=== PATIENT | female | born 1960 | race Caucasian/White ===

== ENCOUNTER 2018-05-27 17:45 | Emergency (ER) | payer OTHER ==
[~2018-05-27] VITALS: Ht 154.9 cm; Wt 77.0 kg
[2018-05-27 22:01] VITALS: BP 129/77
== END 2018-05-27 22:03 | disposition home or self-care (01) ==
LOC: ER 17:47
DX: M79.605 Pain in left leg (principal); R22.42 Localized swelling, mass and lump, left lower limb; E11.9 Type 2 diabetes mellitus without complications; F17.200 Nicotine dependence, unspecified, uncomplicated; Z60.2 Problems related to living alone; Z88.8 Allergy status to other drugs, medicaments and biological substances; Z88.5 Allergy status to narcotic agent
CPT/HCPCS: 93971; 99284

== ENCOUNTER 2018-10-04 08:08 | Emergency (ER) | payer MEDICAID ==
[~2018-10-04] VITALS: Ht 154.9 cm; Wt 72.7 kg
[2018-10-04 08:52] VITALS: BP 147/114
[2018-10-04] MEDS ORDERED: ketorolac trometh. 30mg/ml inj. IM ONE (09:00)
== END 2018-10-04 10:02 | disposition home or self-care (01) ==
LOC: ER 08:08
DX: G89.29 Other chronic pain (principal); M25.562 Pain in left knee; R60.0 Localized edema; E78.00 Pure hypercholesterolemia, unspecified; I10 Essential (primary) hypertension; E11.9 Type 2 diabetes mellitus without complications; F41.9 Anxiety disorder, unspecified; F32.9 Major depressive disorder, single episode, unspecified; F12.90 Cannabis use, unspecified, uncomplicated; Z87.891 Personal history of nicotine dependence; Z88.6 Allergy status to analgesic agent; Z88.5 Allergy status to narcotic agent; Z88.8 Allergy status to other drugs, medicaments and biological substances
CPT/HCPCS: 93971; 96372; 99284; J1885

== ENCOUNTER 2022-06-13 06:59 | Inpatient (IN) | payer BC, MEDICAID ==
[2022-06-06 11:24] LABS: HEMOGLOBIN A1C 6.7 % (4.5-6.2)
[2022-06-06 11:29] LABS: ALBUMIN 4.6 G/DL (3.4-5.0); ALBUMIN/GLOBULIN RATIO 1.4 (1.1-1.5); ALKALINE PHOSPHATASE 121 IU/L (46-116); BLOOD UREA NITROGEN 14 MG/DL (7-18); BUN/CREATININE RATIO 17.7 (10.0-20.0); CALCIUM 9.1 MG/DL (8.5-10.1); CHLORIDE 101 MMOL/L (99-107); CREATININE 0.79 MG/DL (0.40-0.90); PRE OP ALT 42 U/L (30-65); PRE OP ANION GAP 11 (8-16); PRE OP AST 28 U/L (10-37); PRE OP BILIRUB, TOTAL 0.3 MG/DL (0.0-1.0); PRE OP GLUCOSE 158 MG/DL (70-104); PRE OP POTASSIUM 3.5 MMOL/L (3.4-5.1); PRE OP SODIUM 138 MMOL/L (135-145); TOTAL CARBON DIOXIDE 25.9 MMOL/L (24-32); eGFR 74 ML/MIN
[2022-06-06 11:38] LABS: BASOPHILS % (AUTO) 0.3 % (0-1); EOSINOPHILS # (AUTO) 0.1 X10'3 (0-0.9); EOSINOPHILS % (AUTO) 0.5 % (0-6); LYMPHOCYTES # (AUTO) 2.2 X10'3 (1.1-4.8); LYMPHOCYTES % (AUTO) 20.7 % (21-51); MEAN CORPUSCULAR HEMOGLOBIN 30.3 PG (27.0-31.0); MEAN CORPUSCULAR HGB CONC 33.8 g/dL (33.0-36.5); MEAN CORPUSCULAR VOLUME 89.7 FL (78-98); MEAN PLATELET VOLUME 7.5 FL (7.4-10.4); MONOCYTES # (AUTO) 0.6 X10'3 (0-0.9); MONOCYTES % (AUTO) 5.4 % (2-12); NEUTROPHILS # (AUTO) 7.6 X10'3 (1.8-7.7); NEUTROPHILS % (AUTO) 73.1 % (42-75); PRE OP HEMATOCRIT 41.9 % (35.0-45.0); PRE OP HEMOGLOBIN 14.2 g/dL (12.0-16.0); PRE OP PLATELET COUNT 352 X10'3 (140-440); RED BLOOD COUNT 4.67 X10'6 (4.20-5.60); RED CELL DISTRIBUTION WIDTH 13.9 % (11.5-14.5)
[2022-06-13] VITALS (20 sets, daily range): BP systolic 111–160; BP diastolic 40–87
[~2022-06-13] VITALS: Ht 157.5 cm; Wt 61.2 kg
[~2022-06-13 06:59] MED LIST: ATOR40TA PO; BACL20TA PO; CLON1TAB95 PO; EXEN5PEN2 SUBCUT; LOSA25TA96 PO; ONDA8TAB13 PO; PNV1TABL87 PO; POTA99CA PO; TRIA1CAP88 PO; VENL75TA4 PO; ZOLP5TAB8 PO; cefazolin 2gm/D5W 100mL 100 ML IV ONE; famotidine 20mg tablet PO ONE; ringers solution, lacted 1,000 ML IV SCH; tranexamic acid 650mg tablet PO ONE; vancomycin/NS 1 GM in NS 250 ML IV ONE
[2022-06-13] MEDS ORDERED: LIDOcaine 1% (10mg/ml) 2ml vial ONE (08:24)
[2022-06-13] MEDS ORDERED: ROPIVAcaine 0.5% (5mg/ml) 30ml vial ONE ×2 (08:29→10:19)
--- NOTE | 2022-06-13 09:30 | NUR ---
PT STATES SHE BATHED W/HEBICLEANSE SOAP AND USED BACTROBAN THE LAST 5 DAYS PER JOINT REPLACEMENT RECOMMENDATIONS. PT DENIES ANY NUMBNESS, PINS, NEEDLES OR DECREASED SENSATION TO LEFT ARM. LEFT RADIAL PULSE 2+ AND PALPABLE. Addendum: 06/13/22 at 1523 by Claribel Lambert RN Amended: Links added.
[2022-06-13] MEDS ORDERED: ondansetron/PF 4mg/2ml inj ONE (10:02)
[2022-06-13] MEDS ORDERED: dexamethasone sod phosphate 10mg/ml inj ONE (10:02)
[2022-06-13] MEDS ORDERED: sevoflurane 250ml liquid IH ONE (10:02)
[2022-06-13] MEDS ORDERED: MIDAZolam 1 MG/ML 5ML VIAL ONE (10:17)
[2022-06-13] MEDS ORDERED: fentaNYL/PF 50MCG/1 ML 2ML syringe ONE (10:17)
[2022-06-13] MEDS ORDERED: LIDOcaine 1%/PF 5ML 10 MG/ML VIAL ONE (10:39)
[2022-06-13] MEDS ORDERED: propofol inj 20 ML IV ONE (10:39)
[2022-06-13] MEDS ORDERED: meperidine/PF 25mg/ml syringe IV PRN ×3 (11:10)
[2022-06-13] MEDS ORDERED: morphine 4 MG/ML inj SYRINge IV PRN (11:10)
[2022-06-13] MEDS ORDERED: ROPIVAcaine 0.2%/PF PUMP/bolus 545 ML INTERSCALE SCH (11:10)
[2022-06-13] MEDS ORDERED: proCHLORperazine 10 MG/2 ml inj IV PRN (11:10)
[2022-06-13] MEDS ORDERED: ROPIVAcaine 0.2% (10 MG/5 ML) BOLUS INJECTION INTERSCALE PRN (11:10)
[2022-06-13] MEDS ORDERED: morphine 2 MG/ML inj. syringe IV PRN (11:10)
[2022-06-13] MEDS ORDERED: ringers solution, lacted 1,000 ML IV SCH (11:10)
[2022-06-13] MEDS ORDERED: ondansetron/PF 4mg/2ml inj IV PRN ×2 (11:10→13:00)
--- NOTE | 2022-06-13 12:27 | NUR ---
Received from OR via HOSPITAL BED, accompanied by Anesthesiologist DR. ALVES and report given by Anesthesiolgist. PATIETN WIDE AWAKE C/O HAVING TO URINATE. RIGHT HAND 20G PIV WITH LR RUNNING. VSS. DENIES PAIN. WIGGLES LEFT FINGERS. LEFT SHOULDER REPAIR. DRESSING CDI, SLING AND SAND IN PLACE.
[2022-06-13] MEDS ORDERED: non-formulary drug (Ondansetron 8mg ODT*** (Ondansetron Odt) 1 TAB) PO PRN (13:00)
[2022-06-13] MEDS ORDERED: HYDROcodone/acetaminophen 10/325mg tab PO PRN ×2 (13:00)
[2022-06-13] MEDS ORDERED: magnesium hydroxide 30ml (MOM) UD suspension PO PRN (13:00)
[2022-06-13] MEDS ORDERED: HYDROmorphone inj. 0.5 MG/0.5 ML DISP.SYRIN IV PRN (13:00)
[2022-06-13] MEDS ORDERED: acetaminophen 325mg tablet PO PRN (13:00)
[2022-06-13] MEDS ORDERED: diphenhydrAMINE 25mg capsule PO PRN ×2 (13:00)
[2022-06-13] MEDS ORDERED: bisacodyl 10mg suppository rectal RC PRN (13:00)
[2022-06-13] MEDS ORDERED: naloxone 0.4 mg/ml inj IV PRN (13:00)
[2022-06-13] MEDS ORDERED: HYDROmorphone 1 mg/ml syringe IV PRN (13:00)
--- NOTE | 2022-06-13 13:57 | NUR ---
PATIENT MEETS DISCHARGE CRITERIA FROM RECOVER. REPORT CALLED TO MARIAM Brandt. PATIENT DENIES PAIN. ONQ IN PLACE. VSS. LEFT ARM DRESSING CDI.
[2022-06-13] MEDS: potassium cl 20mEq in 1/2 NS 1,000 ML IV SCH ×2 (14:00→21:00)
[2022-06-13] MEDS: acetaminophen 325mg tablet PO SCH ×2 (14:01→20:39)
[2022-06-13] MEDS: oxyCODONE IR 5mg (immed. release) tablet PO PRN ×2 (16:06→20:40)
[2022-06-13] MEDS: ceFAZolin/D5W- 1GM premix 50 ML IV SCH ×2 (16:06→23:17)
--- NOTE | 2022-06-13 18:48 | NUR ---
patient orientated to room ice pack in place ON Q at 2, patient c/o pain medicated as per EMAR with good result. VSS Report given to Vidya GARCIA
[2022-06-13] MEDS ORDERED: vancomycin/NS 1 GM ADD-VANTAGE 250 ML IV SCH (20:00)
[2022-06-13] MEDS ORDERED: non-formulary drug (Potassium Citrate (Potassium) 1 CAP) PO SCH (20:00)
[2022-06-13] MEDS: clonazePAM 1mg tablet PO SCH (20:36)
[2022-06-13] MEDS: baclofen 10mg tablet PO SCH (20:39)
[2022-06-13] MEDS ORDERED: zolpidem 5mg tablet PO SCH (21:00)
[2022-06-13] MEDS ORDERED: atorvastatin 20mg tablet PO SCH (21:00)
[2022-06-13] MEDS ORDERED: sennosides 8.6mg tablet PO SCH (21:00)
--- NOTE | 2022-06-13 21:00 | NUR ---
Patient in room ORTHO 4024. I have received report from Yann GARCIA and had the opportunity to ask questions and assume patient care.
[2022-06-14 02:00] VITALS: BP 120/82
[2022-06-14] MEDS: acetaminophen 325mg tablet PO SCH ×2 (02:13→07:33)
[2022-06-14] MEDS: oxyCODONE IR 5mg (immed. release) tablet PO PRN ×2 (05:12→10:58)
[2022-06-14] MEDS: potassium cl 20mEq in 1/2 NS 1,000 ML IV SCH (05:12)
--- NOTE | 2022-06-14 05:56 | NUR ---
Problems reprioritized. Patient report given, questions answered & plan of care reviewed with Ashley GARCIA.
--- NOTE | 2022-06-14 06:48 | NUR ---
Patient in room ORTHO 4024. I have received report from JHONNY GARCIA and had the opportunity to ask questions and assume patient care.
[2022-06-14 07:32] VITALS: BP_SYST 106
[2022-06-14] MEDS: clonazePAM 1mg tablet PO SCH (07:33)
[2022-06-14] MEDS: baclofen 10mg tablet PO SCH (07:33)
[2022-06-14 07:53] LABS: BASOPHILS % (AUTO) 0.2 % (0-1); EOSINOPHILS % (AUTO) 0.2 % (0-6); HEMOGLOBIN 11.7 g/dl (12.0-16.0); LYMPHOCYTES % (AUTO) 20.6 % (21-51); MEAN CORPUSCULAR HEMOGLOBIN 30.9 PG (27.0-31.0); MEAN CORPUSCULAR HGB CONC 34.4 g/dL (33.0-36.5); MEAN PLATELET VOLUME 7.9 FL (7.4-10.4); MONOCYTES # (AUTO) 0.9 X10'3 (0-0.9); MONOCYTES % (AUTO) 9.8 % (2-12); NEUTROPHILS # (AUTO) 6.6 X10'3 (1.8-7.7); NEUTROPHILS % (AUTO) 69.2 % (42-75); PLATELET COUNT 304 X10'3 (140-440); RED BLOOD COUNT 3.77 X10'6 (4.20-5.60); RED CELL DISTRIBUTION WIDTH 13.7 % (11.5-14.5); WHITE BLOOD COUNT 9.5 X10'3 (4.5-11.0)
[2022-06-14] MEDS ORDERED: EXENATIDE 5 MCG SQ SCH (08:00)
[2022-06-14] MEDS ORDERED: losartan 25mg tablet PO SCH (08:00)
[2022-06-14] MEDS ORDERED: triamterene/HCTZ 37.5/25mg tablet PO SCH (08:00)
[2022-06-14] MEDS ORDERED: MULTIVIT-MIN/FERROUS GLUCONATE 9 MG/15 ML LIQUID PO SCH (08:00)
[2022-06-14 08:05] LABS: ANION GAP 9 (8-16); CHLORIDE 105 MMOL/L (99-107); POTASSIUM 3.6 MMOL/L (3.5-5.1); SODIUM 141 MMOL/L (135-145); TOTAL CARBON DIOXIDE 27.3 MMOL/L (24-32)
[2022-06-14] MEDS ORDERED: aspirin 325mg tablet PO SCH (08:30)
--- NOTE | 2022-06-14 11:44 | NUR ---
Per EMR pt s/p reverse left TSA. Pt discharging per EMR. Written protein education with ONS coupons and RD contact information mailed to patient's address found in EMR. Will remain available. Addendum: 06/14/22 at [address] Amended: Links added.
--- NOTE | 2022-06-14 11:49 | NUR ---
Patient cleared by PT is for dischargee. DR navarro contacted with regards this . OK to Dc home. meds called into patients pharmacy per office and patient. All Dc instructions given to patient. patient DC home with ON Q ball, sling and dressing CDI. via private car to home with neighbor.
[2022-06-15] MEDS ORDERED: venlafaxine XR 75mg capsule (Q24H) PO SCH (08:00)
[2022-06-15] MEDS ORDERED: acetaminophen 325mg tablet PO PRN (13:00)
== END 2022-06-14 11:10 | disposition home or self-care (01) | DRG 483 ==
LOC: PAS IN 06:59 → ORTHO 4S 14:00
PROVIDERS: ADMIT Orthopaedic Surgery; ATTEND Orthopaedic Surgery
PROC: 0LS40ZZ Reposition Left Upper Arm Tendon, Open Approach (ICD-10-PCS; 2022-06-13)
PROC: 3E0T3BZ Introduction of Anesthetic Agent into Peripheral Nerves and Plexi, Percutaneous Approach (ICD-10-PCS; 2022-06-13)
PROC: 3E0T33Z Introduction of Anti-inflammatory into Peripheral Nerves and Plexi, Percutaneous Approach (ICD-10-PCS; 2022-06-13)
PROC: 0RRK00Z Replacement of Left Shoulder Joint with Reverse Ball and Socket Synthetic Substitute, Open Approach (ICD-10-PCS; principal; 2022-06-13 10:02)
DX: M75.122 Complete rotator cuff tear or rupture of left shoulder, not specified as traumatic (principal); M19.112 Post-traumatic osteoarthritis, left shoulder
CPT/HCPCS: 36415; 73030; 80051; 80053; 82948; 83036; 85025; 87081; 97110; 97116; 97161; A4565; A4618; A7000; C1776; G0378; J0690; J1100; J2250; J2405; J2704; J2795; J3010; J3370; J3480; J3490; J7120

== ENCOUNTER 2024-12-15 17:58 | Inpatient (IN) | payer BC, MEDICAID ==
[~2024-12-15] VITALS: Ht 157.5 cm; Wt 73.0 kg
[2024-12-15] MEDS: normal saline 1000ML IV soln IVB ONE (01:30)
[~2024-12-15 17:58] MED LIST changes: -ATOR40TA PO; +CIPR250S2 PO; +LOSA-415 PO; -LOSA25TA96 PO; +ONDA-245 PO; -ONDA8TAB13 PO; -TRIA1CAP88 PO; +ZOLP5TAB18 PO; -ZOLP5TAB8 PO; -cefazolin 2gm/D5W 100mL 100 ML IV ONE; -famotidine 20mg tablet PO ONE; +flagyl PO; -ringers solution, lacted 1,000 ML IV SCH; -tranexamic acid 650mg tablet PO ONE; -vancomycin/NS 1 GM in NS 250 ML IV ONE
--- NOTE | 2024-12-15 18:41 | Physician Documentation ---
History of Present Illness ~ Chief Complaint: ALOC Stated Complaint: ALOC Time Seen by MD: 18:35 Primary Medical Doctor: MARIAM ROWLEY Patient presented to the emergency room with altered mental status. EMS reports that caregiver reported patient has not been the same since discharge. She was just admitted here recently for altered mental status and was found that patient cleared up in his secondary to adverse medication reactions responding to Narcan. History limited at this time as patient that has awake but only sitting there drooling. That has an apparent fall reported. No blood thinners Medication Reconciliation Allergies: Coded Allergies: crab (Verified Allergy, Mild, N/V/D, 12/15/24) latex (Verified Allergy, Mild, ITCHY AND REDNESS, 12/15/24) metformin (Verified Allergy, Mild, N/V, 12/15/24) Sulfa (Sulfonamide Antibiotics) (Verified Allergy, Unknown, 12/15/24) Scheduled Losartan Potassium* (Cozaar*), 50 MG PO DAILY, (Reported) Potassium Citrate (Potassium), 1 CAP PO BID, (Reported) Venlafaxine HCl (Venlafaxine HCl), 225 MG PO DAILY, (Reported) Zolpidem Tartrate (Zolpidem Tartrate), 1 TAB PO HS Scheduled PRN Clonazepam (Clonazepam), 1 TAB PO BID PRN for for anxiety/agitation Ondansetron 8mg ODT (Ondansetron Odt), 1 TAB PO Q8H PRN for nausea/vomiting, (Reported) Discontinued Medications Baclofen (Baclofen), 1 TABLET PO TID, (Reported) Ciprofloxacin (Cipro), 1 TAB PO Q12H Exenatide (Byetta), 5 MCG SUBCUT BID, (Reported) Pnv No.95/Ferrous Fum/Folic AC ( Multivitamin Tablet), 1 TAB PO DAILY, (Reported) [flagyl], 500 PO BID Past Medical History Past Medical History: High Cholesterol, Hypertension, Diabetes, Anxiety, Depression Past Surgical History: noncontributory Alcohol Use: Rarely Drug Use: marijuana Lives with: Alone Lives In: Home Review of Systems ROS Review of systems limited secondary to patient's clinical condition Physical Exam Vital Signs: Heart Rate: 106, Respiratory Rate: 16, BP: 139/86, Pulse Oximetry: 98, Weight: 73.000 Oxygen Flow Rate: 0 General Appearance General: Patient is awake, not answering questions. Appears sedated Head: Normocephalic and atraumatic. Eyes: Conjunctival normal. EOMI. PERRL. ENT: Mucous membranes moist. Neck: Supple, trachea is midline. Chest: Clear to auscultation bilaterally without rales, rhonchi, or wheezes. There is no accessory muscle use or retractions. Cardiac: Tachycardic regular without murmurs, gallops, or rubs. Neuro: Cranial nerves 2-12 grossly intact Progress Results/Orders Results/Orders Orders - DOM STRONG MD Ct Cervical Spine (12/15/24 18:44) Ct Head (12/15/24 18:44) Accucheck (12/15/24 18:58) Chest,Single View (12/15/24 19:27) Monitor (12/15/24 18:58) Saline Lock (12/15/24 18:58) * Npo Until Passed Bedside Swa (12/15/24 18:58) Nursing Swallow Screen (12/15/24 18:58) Page Hospitalist (12/15/24 21:34) Fill Out Med Reconciliation (12/15/24 21:34) Completed Orders - DOM STRONG MD Naloxone 2mg/2ml Inj (Narcan 2mg/2ml Inj (12/15/24 18:40) Ct Cervical Spine (12/15/24 18:44) Ct Head (12/15/24 18:44) Electrocardiogram (12/15/24 18:58) Cbc/Diff (12/15/24 18:58) Chest,Single View (12/15/24 19:27) Hs Troponin I W Calculations (12/15/24 18:58) CMP (12/15/24 18:58) Ammonia (12/15/24 18:58) Drug Screen, Urine (12/15/24 18:58) Haloperidol Lact. (Haldol) (12/15/24 20:45) MG (12/15/24 19:59) PBNP (12/15/24 19:59) PHOS (12/15/24 19:59) Ua W/Microscopic, Cult If Ind (12/15/24 22:06) C-Reactive Protein (12/15/24 19:59) Ethanol (12/15/24 19:59) Medications Received in ER Medications (Trade) Dose Ordered Sig/[place] Route PRN Reason Start Time Stop Time Status Last Admin Dose Admin (Narcan 2mg/2ml inj) 2 mg ONCE STAT IV 12/15/24 18:40 12/15/24 18:41 DC 12/15/24 18:49 2 MG (Haldol) 10 mg ONCE ONCE IM 12/15/24 20:45 12/15/24 20:48 DC 12/15/24 20:52 10 MG Sodium Chloride 1,000 ml @ 100 mls/hr Q10H IV 12/15/24 22:10 12/15/24 22:41 100 MLS/HR (Slow-Mag tablet) 128 mg BID PRN PO Mag 1.4 or less & can take PO 12/15/24 22:10 12/18/24 22:09 12/16/24 01:29 128 MG Vital Signs 12/15/24 12/15/24 18:14 18:43 Pulse 106 Resp 16 16 B/P (MAP) 139/86 Pulse Ox 98 O2 Flow Rate 0 Laboratory Tests Test 12/15/24 19:59 12/15/24 20:17 12/15/24 22:06 White Blood Count 13.2 H Red Blood Count 3.20 L Hemoglobin 10.6 L Hematocrit 30.5 L Mean Corpuscular Volume 95.6 Mean Corpuscular Hemoglobin 33.2 H Mean Corpuscular Hemoglobin Concent 34.7 Red Cell Distribution Width 14.5 Platelet Count 261 Mean Platelet Volume 7.2 L Neutrophils (%) (Auto) 89.0 H Lymphocytes (%) (Auto) 5.8 L Monocytes (%) (Auto) 4.5 Eosinophils (%) (Auto) 0.4 Basophils (%) (Auto) 0.3 Neutrophils # (Auto) 11.7 H Lymphocytes # (Auto) 0.8 L Monocytes # (Auto) 0.6 Eosinophils # (Auto) 0.1 Basophils # (Auto) 0.0 CBC Comment Erythrocyte Sedimentation Rate 44 H Sodium Level 133 L Potassium Level 3.5 Chloride Level 100 Carbon Dioxide Level 19.8 L Anion Gap 13 Blood Urea Nitrogen 14 Creatinine 1.24 H Estimated GFR/1.73 m2 43 BUN/Creatinine Ratio 11.3 Glucose Level 141 H Calcium Level 7.6 L Phosphorus Level 1.7 L Magnesium Level 1.0 *L Total Bilirubin 0.4 Aspartate Amino Transf (AST/SGOT) 205 H Alanine Aminotransferase (ALT/SGPT) 124 H Alkaline Phosphatase 151 H Ammonia 10 L Troponin I High Sensitivity 40 C-Reactive Protein 0.92 H Pro-B-Type Natriuretic Peptide 2905 H Total Protein 6.5 Albumin 3.3 L Globulin 3.2 Albumin/Globulin Ratio 1.0 L Chemistry Comments Ethyl Alcohol Level < 10 Glucometer 148 H Urine Specimen Description Straight cath Urine Color Straw Urine Clarity Cloudy Urine pH 6.0 Urine Specific Hume 1.025 Urine Protein 100 H Urine Glucose (UA) 100 H Urine Ketones >=80 Urine Occult Blood Large H Urine Nitrite Positive H Urine Bilirubin Negative Urine Urobilinogen 0.2 Urine Leukocyte Esterase Trace H Urine RBC 3-10 Urine WBC 10-20 H Urine Squamous Epithelial Cells Few Urine Bacteria 3+ Urine Mucus None seen Urine Culture Indicated Indicated Volume Urine Centrifuged 10 ml Urine Comment Urine Opiates Screen Negative Urine Methadone Screen Negative Urine Fentanyl Screen Negative Urine Barbiturates Screen Negative Urine Phencyclidine Screen Negative Urine Amphetamines Screen Negative Urine Benzodiazepines Screen Positive Urine Cocaine Screen Negative Urine Cannabinoids Screen Positive Drug Screen Comment Medical Decision Making Additional information obtaine: old records Findings Patient presents to the emergency room with waxing and waning mentation. Differentials include but are not limited to metabolic encephalopathy, delirium, psychiatric disturbance, medication reaction therefore emergent labs and imaging indicated. Differential Dx:Considerations: Include: dehydration, Delirium Tr., DKA, encephalopathy, hypercalcemia, HHNC, hypoglycemia, hypernatremia, hyponatremia, hypoxia, postictal, closed head injury, C-spine injury, CVA, mass lesion, subarachnoid hemorrhage, drug overdose, encephalopathy, ETOH intoxication, medication toxicity, infection - meningitis, infection - sepsis, infection - UTI, heart failure, renal failure, respiratory failure, hyperthermia, hypothermia, other Departure Admitted to Inpatient Unit: yes, to hospitalist Impression: Primary Impression: Altered mental status Additional Impression: Metabolic encephalopathy Condition: Guarded Referrals: NO PRIMARY CARE PROVIDER (PCP) Signature Scribe Signature: No scribe Attestation: The note accurately reflects work and decisions made by me.Dom Strong MD 12/16/24 01:45 DOM STRONG MD Dec 15, 2024 18:41
[2024-12-15] MEDS: naloxone 2mg/2ml inj IV STA (18:49)
--- NOTE | 2024-12-15 19:42 | RADIOLOGY REPORT ---
EXAM: DI CHEST,SINGLE VIEW HISTORY: aloc TECHNIQUE: 1 view of the chest COMPARISON: DI CHEST,SINGLE VIEW on DOS: 12/13/24 FINDINGS/IMPRESSION: LUNGS: No pleural effusion, consolidation, or pneumothorax. MEDIASTINUM: Unremarkable. BONES: No acute osseous abnormality. Hardware of the left shoulder OTHER: None.
--- NOTE | 2024-12-15 19:43 | ELECTROCARDIOGRAPH REPORT ---
[facility] Test Date: 2024-12-15 Test Time: 19:40:19 Pat Name: LILIBETH CONTRERAS Department: [facility]- Patient ID: [id number] [facility] Gender: F Family Support Worker: : 1960 Requested By: ELIZABETH BAEZ Order Number: [id number] Reading MD: Dr. Sunny Fountain Measurements Intervals [place] Rate: 113 P: 47 MA: 163 QRS: 9 QRSD: 86 T: 67 QT: 329 QTc: 451 Interpretive Statements Sinus tachycardia Artifact in lead(s) I,III,aVL,V2 Electronically Signed On 12-16-2024 18:50:[address] Sunny Fountain Please click the below link to view image of tracing.
[2024-12-15 20:12] LABS: MEAN PLATELET VOLUME 7.2 FL (7.4-10.4); RED CELL DISTRIBUTION WIDTH 14.5 % (11.5-14.5)
[2024-12-15 20:25] LABS: CREATININE 1.24 MG/DL (0.40-0.90); TOTAL CARBON DIOXIDE 19.8 MMOL/L (24-32); eCRCL 35 ML/MIN; eGFR 43 ML/MIN
[2024-12-15] MEDS: haloperidol lactate 5mg/ml inj IM ONE (20:52)
--- NOTE | 2024-12-15 21:22 | RADIOLOGY REPORT ---
EXAM: CT CT HEAD INDICATION: fall, pain TECHNIQUE: CT of the head without intravenous contrast. Radiation Dose Information: CT Dose: CTDI volume is 56.42 mGy. Dose-length product is 1177.47 mGy*cm The dose indicators for CT are the volume Computed Tomography (CT) Dose Index (CTDIvol) and the Dose Length Product (DLP), and are measured in units of mGy and mGy-cm, respectively. These indicators are not patient dose, but values generated from the CT scanner acquisition factors. The report includes radiation exposure data for exposures received during this examination. COMPARISON: CT CT CERVICAL SPINE on DOS: 12/13/24, CT CT HEAD on DOS: 12/13/24 FINDINGS: There is no evidence of acute intracranial hemorrhage, extra-axial collection, mass effect, midline shift, herniation or hydrocephalus. The ventricles, sulci and cisterns are age appropriate. The wolf-white differentiation is intact. Patchy periventricular and subcortical white matter hypoattenuation is nonspecific but may be related to small vessel ischemic disease. The visualized paranasal sinuses and mastoid air cells are clear. The surrounding soft tissues and osseous structures are unremarkable. IMPRESSION: No acute intracranial abnormality.
--- NOTE | 2024-12-15 21:24 | RADIOLOGY REPORT ---
EXAM: CT CT CERVICAL SPINE HISTORY: fall, pain COMPARISON: CT CT HEAD on DOS: 12/15/24, CT CT CERVICAL SPINE on DOS: 12/13/24, CT CT HEAD on DOS: 12/13/24 CTDIvol 21.57 mGy, DLP 504.16 mGy*cm. TECHNIQUE: Multiple axial CT images of the spine were obtained using bone algorithm. Axial and coronal reformatting was done. Bone and soft tissue windows were reviewed. FINDINGS: No evidence of definite acute fracture, spinal dislocation, or significant appearing acute subluxation is seen. Severe degenerative disc disease at C5-6. IMPRESSION: No acute cervical spine abnormality.
[2024-12-15] MEDS ORDERED: magnesium sulf-water 4G/100mL 100 ML IV PRN (22:10)
[2024-12-15] MEDS ORDERED: potassium Cl 40MEQ/1/2NS 520ml 520 ML IV PRN (22:10)
[2024-12-15] MEDS ORDERED: magnesium sulf-water 2g/50mL 50 ML IV PRN (22:10)
[2024-12-15] MEDS ORDERED: magnesium hydroxide 30ml (MOM) UD suspension PO PRN (22:10)
[2024-12-15] MEDS ORDERED: mag hydrox/Alum hydrox/simeth 30ml oral suspension PO PRN (22:10)
[2024-12-15 22:17] LABS: LEUKOCYTE ESTERASE ,URINE TRACE (Neg); NITRITES, URINE POSITIVE (Neg); OCCULT BLOOD,URINE LARGE (Neg)
[2024-12-15 22:31] LABS: URINE AMPHETAMINE SCREEN NEGATIVE (Neg); URINE BARBITUATE SCREEN NEGATIVE (Neg); URINE BENZODIAZEPINES SCREEN POSITIVE (Neg); URINE CANNABINOID SCREEN POSITIVE (Neg); URINE COCAINE SCREEN NEGATIVE (Neg); URINE METHADONE SCREEN NEGATIVE (Neg); URINE OPIATE SCREEN NEGATIVE (Neg); URINE PHENCYCLIDINE SCREEN NEGATIVE (Neg)
[2024-12-15 22:35] LABS: UA COLLECTION TYPE STRAIGHT CATH
[2024-12-15] MEDS: PERFLUTREN PROTEIN-A MICROSPHR (Optison) 0.22 MG/ML 3ML VIAL IV ONE (22:36)
[2024-12-15] MEDS: normal saline 1000ml 1,000 ML IV SCH (22:41)
[2024-12-15 22:42] LABS: MUCUS STRANDS NONE SEEN /LPF (Neg); SQUAMOUS EPITHELIAL CELL,UR FEW /LPF (FEW)
[2024-12-15] MEDS ORDERED: CefTRIAXone/D5W-Rocephin 1gm 50 ML IV SCH (22:50)
[2024-12-15 22:59] LABS: PHOSPHORUS 1.7 MG/DL (2.3-4.5); PRO BRAIN NATRIURETIC PEPTIDE 2905 PG/ML (0-125)
[2024-12-15 23:09] LABS: ETHANOL < 10 MG/DL (<10)
[2024-12-15 23:48] LABS: APTT 25 SECONDS (22-32); INR 1.1 INR
[2024-12-16] VITALS (16 sets, daily range): BP systolic 101–153; BP diastolic 42–69; PULSE 61–118; RESP 14–39; TEMP 97.8–99.5; O2SAT 91–100
[2024-12-16] MEDS: normal saline 1000ml 1,000 ML IV ONE ×2 (00:15)
--- NOTE | 2024-12-16 00:33 | HISTORY AND PHYSICAL-Residence ---
History & Physical Providers to CC Resident Creating Document: TAMIKO LOVE, RES CC: JUSTINE LEO MD ~ History of Present Illness Primary Medical Doctor: MARIAM ROWLEY Reason for Admit\Complaint: Syncope, delirium, seizures History of Present Illness A 64-year-old female patient with a medical history of type 2 diabetes mellitus, hypertension, and depression was discharged this morning after being evaluated for metabolic encephalopathy and an altered level of consciousness. Hospital course during previous admission The patient was brought to the ED, where she presented as somnolent and poorly arousable. A stroke evaluation, including a CT scan of the head, returned negative results. The patient received two doses of Narcan, to which she responded positively, demonstrating movement in all four extremities. Toxicology results showed positive screens for benzodiazepines and cannabinoids. The patient has a history of medication misuse and visits multiple doctors. Later that evening, the patient was brought in by EMS after being called by her neighbor. The neighbor observed that the patient appeared confused and not like her usual self. The neighbor noted that the patient had fallen, lost consciousness for 1-2 minutes, and exhibited jerking movements in all four extremities. The patient also experienced some postictal confusion following the episode, but no tongue biting was observed, prompting the neighbor to call EMS. Upon arrival at the ED, the ED physician found the patient confused and altered. During my evaluation, the patient was alert and oriented to person and place (A&O x2). Her level of consciousness was improved compared to her previous admission two days ago. However, she remained mildly confused and did not have a clear memory of the events. She did mention a feeling of losing consciousness. The patient also sustained an external injury near her left forehead and left eyebrow. The patient lives alone and can ambulate independently, but she does not have any caregiver. Her neighbor, Francesca, assists her but expressed that it has become increasingly difficult to care for the patient. Allergies: Coded Allergies: crab (Verified Allergy, Mild, N/V/D, 12/15/24) latex (Verified Allergy, Mild, ITCHY AND REDNESS, 12/15/24) metformin (Verified Allergy, Mild, N/V, 12/15/24) Sulfa (Sulfonamide Antibiotics) (Verified Allergy, Unknown, 12/15/24) Home Medications Home Medications Active Zolpidem Tartrate 5 Mg Tablet 1 Tab PO HS 30 Days Clonazepam 1 Mg Tablet 1 Tab PO BID PRN MDD 2 Tablet(s) 30 Days Reported Potassium (Potassium Citrate) 99 Mg Capsule 1 Cap PO BID Ondansetron Odt (Ondansetron HCl) 8 Mg Tab.rapdis 1 Tab PO Q8H PRN Venlafaxine HCl 75 Mg Tablet 225 Mg PO DAILY Cozaar* (Losartan Potassium) 25 Mg Tablet 50 Mg PO DAILY Past Medical History Past Medical History Hypertension Hyperlipidemia Arthritis Type 2 diabetes mellitus Depression Sciatica Past Surgical History Surgical History Comment Appendectomy Bilateral ovarian removal Hysterectomy Shoulder replacement-left Humerus fracture repair Macular trauma and repair Past Social History Social History Comment Lives at home by herself, patient smokes about a pack of cigarettes and has smoked for the last 40 years. Patient occasionally drinks alcohol-wine and does have few shots of vodka occasionally Does not consume any illicit drugs Alcohol Use: Rarely Drug Use: Marijuana Lives with: Alone Lives In: Home ROS ROS Constitutional: No fever, dizziness, weakness, no decrease in appetite HEENT: Normal vision. No sore throat, epistaxis, tinnitus Cardiovascular: No chest pain/discomfort, palpitations, syncope. no pedal edema Respiratory: No sob, cough,hemoptysis Gastrointestinal: No abdominal pain, nausea, vomiting. No diarrhea, melena. Genitourinary: No frquency, urgency, incontinence, nocturia. No dysuria, hematuria Musculoskeletal: Normal, no pains Endocrine: No fatigue, polydipsia, polyuria. No heat or cold intolerance Neurologic: No headache, vertigo. No weakness, numbness or tingling of extremities, confusion and inattentiveness noted Psychiatric: No hallucinations/delusions, no anhedonia, no suicidal ideation Hematologic: No bruises Exam Vitals: Vital Signs Date Time Temp Pulse Resp B/P (MAP) Pulse Ox O2 Delivery O2 Flow Rate FiO2 12/15/24 22:58 99 16 147/64 (91) 99 0 General: General: AXO 2 ; patient does have some waxing and weaning, able to follow commands however does have confusion and inattentiveness HEENT: Conjunctive are pale, sclerae clear, no icterus, pupil is equal in both sides, reactive to light, no ear discharge, no pharyngeal erythema or an edema. Neck: Supple, no JVD, no lymphadenopathy and thyromegaly. Chest: Equal air entry on both lungs, no additional sounds no rhonchi no wheezing at the moment. Cardiovascular: S1-S2 regular sinus rhythm and, regular rate, no gallops, no rubs, no murmurs Abdomen: No visible peristalsis, Bowel sounds present on auscultation, soft, no tenderness, no guarding, no rigidity Extremities: No obvious deformities, no pitting edema bilaterally, capillary refill intact, peripheral pulsations are intact on both sides; left shoulder postsurgical scar Neurologic: Mental status: alert and conscious, oriented to place, person normal speech. Cranial nerves I-XII: Normal. Motor system: Preserved power, coordination, no evidenced involuntary movements, strength 5/5 in four extremities. Sensory system: Preserved temperature, pain and vibration sensation. 2+ deep tendon reflexes in biceps, triceps, quadriceps. Negative Babinski. Cerebellar: No nystagmus, dysdiadochokinesia, normal [id number] testing. Musculoskeletal: No joint swelling, deformities, inflammations, and no scoliosis and back tenderness Skin: Warm and dry. Dry oral mucosa. Diagnostic Data Last Recorded Lab Results: 12/15/24195812/15/241958 Diagnostic Data: Laboratory Tests Test 12/15/24 23:02 Prothrombin Time 10.9 SECONDS (9.0-12.0) INR International Normalized Ratio 1.1 INR Activated Partial Thromboplast Time 25 SECONDS (22-32) Coagulation Comments Advance Care Planning Advanced Care plannin - 30 Minutes (Spent 17 minutes discussing advanced care planning/resuscitative methods patient decided she wanted to be full code) Additional Plan Assessment A 64-year-old female patient with a medical history of type 2 diabetes mellitus, hypertension, and depression was discharged this morning after being evaluated for metabolic encephalopathy and an altered level of consciousness. She is currently being worked up for seizures, and is being treated for sepsis Acute Metabolic encephalopathy Altered level of consciousness/delirium 2/2 urinary tract infection, medication overuse SIRS criteria met-heart rate >100, WBC more than 12,000 Sepsis(sirs criteria met plus source of infection noted) GCS- E(2) V(3) M(6)(inconsistent) Patient is awake, mildly confused and follows simple commands inconsistently Patient received one dose of Narcan 2 mg which she did not make her much response and she also received 10 mg haloperidol Blood glucose within normal limits, ETOH less than 10, ammonia less than 10, U tox continues to be positive for benzodiazepine cannabinoid CT head negative for any acute intracranial abnormality, TSH was normal in the previous visit WBC mildly elevated at 13.2, ESR elevated at 44, lactic acid within normal limits, CRP elevated at 0.9 Urinalysis reported cloudy urine; positive nitrates positive leukocyte esterase and 10-20 WBC noted Chest x-ray reported normal; patient's proBNP is elevated at 2000, however on auscultation her chest sounds clear Plan Initiated the patient on sepsis protocol, 2.25 L bolus normal saline Continue patient on normal saline 100 mL/hour Initiated the patient on ceftriaxone 1 g IV Follow up with urine cultures and sensitivities Hold sedative medications, hold zolpidem baclofen and venlafaxine(her home medications) Ordered repeat chest x-ray at 8:00 a.m. today Syncope Possibly secondary to generalized seizure Patient had a fall to the ground, bruise to left eyebrow and left forehead; CT head negative for any acute intracranial abnormality Patient's neighbor witnessed seizure all four extremities jerking movements; altered level of consciousness, postictal confusion was noted, no triggers were noted Consulted teleneurologist, recommended EEG Plan Ordered echocardiogram,orthostatic vitals Ordered EEG Electrolyte abnormalities Mild hyponatremia Hypomagnesemia Continue IV fluids, Replace magnesium as per protocol Diabetes mellitus type 2 Patient's urinalysis was positive for high glucose, high protein HGB A1c elevated at 6.6, fairly controlled Initiated the patient on hyperglycemia hypoglycemic protocol Outpatient workup for proteinuria Hypertension The patient's medical records, she takes losartan 50 mg Continue losartan 50 mg once med rec is done Chronic pain/sciatica Patient's cervical spine CT showed [id number] cervical degenerative Moderate to severe cervical degenerative foraminal stenosis Hold pain medications which would cause sedation/drowsiness for now HOWARD on CKD stage IIIA Patient's current creatinine is at 1.24 Continue IV fluids Transaminitis Patient has a elevated AST, ALT and elevated alkaline phosphatase Patient does not have any abdominal pain on palpation Ordered GGT, indirect bilirubin and ultrasound abdomen Active tobacco use disorder Initiated the patient on 21 mg nicotine patch Depression Hold venlafaxine for now considering patient's mentation Code Status: Full code DVT Prophylaxis: SCDs Lines/Tubes: PIV Nutrition: NPO till she passes BSS; 75 g carb controlled diet PT: Yes Prognosis: Guarded Disposition: Follow up with echocardiogram, EEG, urine cultures and sensitivities. Follow with chest x-ray 8:00 a.m. Tamiko Love MD Internal medicine resident,[id number] Date of Service: Dec 16, 2024 Billing Provider: JUSTINE LEO MD Addendum Attestation I agree with the residents assessment and plan as below: 64 year old female admitted with AMSand suspected seizure Plan: keppra 500 bid ceftraxone for uti neuro consult mIVF EEG orthostatic vitals CCT 53 min using HIPPA compliant A/V technology TAMIKO LOVE, RES Dec 16, 2024 00:33 JUSTINE LEO MD Dec 16, 2024 04:53
[2024-12-16] MEDS ORDERED: DEXTROSE 15 GM of carb/4 tabs (each vial/BOTTLE has 4 tablets) PO PRN ×2 (01:05)
[2024-12-16] MEDS ORDERED: glucagon, human recombinant 1mg kit SUBCUT PRN (01:05)
[2024-12-16] MEDS ORDERED: dextrose 50%-water 50ml dispensing syringe IV PRN ×2 (01:05)
[2024-12-16] MEDS: magnesium Cl slow-release 64mg tablet PO PRN (01:29)
[2024-12-16] MEDS: normal saline 1000ml 1,000 ML IV SCH (03:50)
[2024-12-16] MEDS ORDERED: normal saline 500ml IV soln 500 ML IV SCH (05:00)
[2024-12-16 05:59] LABS: MEAN PLATELET VOLUME 7.1 FL (7.4-10.4); RED CELL DISTRIBUTION WIDTH 14.7 % (11.5-14.5)
[2024-12-16 06:35] LABS: CREATININE 0.94 MG/DL (0.40-0.90); TOTAL CARBON DIOXIDE 18.0 MMOL/L (24-32); eCRCL 47 ML/MIN; eGFR 60 ML/MIN
[2024-12-16] MEDS: INSULIN LISPRO 100 UNIT/ML INSULN.PEN MULTI-DOSE SQ SCH (07:00)
--- NOTE | 2024-12-16 07:01 | RADIOLOGY REPORT ---
CHEST RADIOGRAPH Indication: to monitor fluid overload Technique: Single frontal view of the chest was obtained COMPARISON: DI CHEST,SINGLE VIEW on DOS: 12/15/24, DI CHEST,SINGLE VIEW on DOS: 12/13/24, DI CHEST,SINGLE VIEW on DOS: 07/15/24 FINDINGS: Lines and Tubes: None Lungs: Congestion Pleura: No effusion. No pneumothorax. Cardiomediastinal contours: Unremarkable Bones: Unremarkable IMPRESSION: Unchanged Mild pulmonary vascular congestion
[2024-12-16] MEDS: docusate sod 100mg capsule PO SCH (08:00)
[2024-12-16] MEDS: nicotine 21mg patch - 24 hr TD SCH (08:45)
[2024-12-16] MEDS: potassium Cl 20 mEq SR tablet PO PRN (08:46)
[2024-12-16] MEDS: CefTRIAXone/D5W-Rocephin 1gm 50 ML IV SCH (08:47)
--- NOTE | 2024-12-16 08:48 | PROGRESS NOTE ---
Daily Progress Note Providers to CC ~ Antibiotic Timeout Antibiotic Ordered?: No Subjective Patient has no new complaints. She has getting an EEG done. Resting comfortably. Objective Vital Signs Date Time Temp Pulse Resp B/P (MAP) Pulse Ox O2 Delivery O2 Flow Rate FiO2 12/16/24 06:55 97.8 96 16 145/66 (92) 96 Room Air 12/15/24 22:58 0 Result Diagram: 12/16/2445412/16/24454 Awake, opens eyes to her name HEENT normocephalic atraumatic extraocular movements are intact Neck supple, no JVD Chest: Clear to auscultation, no wheezes crackles rhonchi Heart: Regular rate rhythm, no murmur or gallop rub Abdomen is soft nontender, no organomegaly Extremities no cyanosis clubbing or edema Neuro exam grossly nonfocal. Moves all four extremities. Coagulation Studies Laboratory Tests Test 12/15/24 23:02 Prothrombin Time 10.9 SECONDS (9.0-12.0) INR International Normalized Ratio 1.1 INR Activated Partial Thromboplast Time 25 SECONDS (22-32) Coagulation Comments Other Results Medications reviewed Problem\Assessment\Plan 64 years old female brought to the emergency room for altered mental status. # metabolic encephalopathy: Patient was discharged from this facility the same day she came back for further evaluation of altered mental status i.e. 12/15/2024. During her recent admission, patient received two doses of Narcan in the ER to which she had responded. Urine tox screen was positive at the time for benzodiazepine and cannabis. Patient was brought back by EMS after a neighbor found her to be more confused and not like her usual self. Patient had fallen, lost consciousness for 1-2 minutes and exhibited jerking movements in all four extremities. Tele neurology consulted. Patient is undergoing an EEG. # UTI: Continue IV antibiotics # SIRS: Continue supportive care #diabetes mellitus type 2: Carb controlled diet. Hyper/hypoglycemia protocol #hypertension: Continue losartan # chronic pain/sciatica: Patient has a DJD of the C-spine. Spinal CT showed moderate to severe cervical degenerative disease and moderate to severe degenerative foraminal stenosis. Address pain control as necessary #acute kidney injury on chronic kidney disease: Likely due to poor p.o. intake/vasomotor nephropathy. Continue monitor. # abnormal LFTs: Continue monitor # hypomagnesemia: Replace per protocol #HFpEF: LASIX P.R.N. # CODE STATUS: Full code. Date of Service: Dec 16, 2024 Billing Provider: FCO QUIROGA MD Common Visit Codes: [id number] INP/OBS CARE(HIGH) FCO QUIROGA MD Dec 16, 2024 08:47
[2024-12-16] MEDS: K and/or MAG REPLACEMENT MC SCH (08:58)
--- NOTE | 2024-12-16 12:15 | [facility]UE [facility]Y NEURO CONSULT REPORT ---
[facility] Procedure Note [facility] Procedure Note Consult [facility] Note # Demographics Consult Type: General Neurology Patient Location: Inpatient First Name: Jailyn Last Name: Shayy Date of : 1960 Age: 64 Gender: Female Facility: [facility] Time of Initial Page (): 12/16/2024 10:49 First Contact with Site (): 12/16/2024 10:49 # HPI Chief Complaint: - seizure History: 64 y/o F with a PMHx of DM, hTN, depression who was recently admitted for metabolic encephalopathy secondary to presumed medication misuse as her u tox was positive for benzodiazepines and cannabinoids and she had a positive response to Narcan. She was initially somnolent and poorly arousable but improved. She was discharged home but later that evening, her neighbor called EMS because the patient was confused, and then she fell and lost awareness for 1-2 minutes. She had jerking movements in all 4 extremities but had no tongue biting or loss of bowel/bladder control. She was post ictal when she got to the ER and confused, but has continued to improve. She denies any history of seizures in the past and as per the chart she has a history of medication misuse and visits multiple doctors. She was also found to have a UTI and admitted for sepsis. She denies a headache, blurry vision, double vision, focal weakness, numbness or tingling. She says she remembers falling but thats it. # Scores Time of exam and NIHSS (): 12/16/2024 12:05 Level of Consciousness 1a: [0] = Alert; keenly responsive LOC Questions 1b: [0] = Answers both questions correctly LOC Commands 1c: [0] = Performs both tasks correctly Best Gaze 2: [0] = Normal Visual 3: [0] = No visual loss Facial Palsy 4: [0] = Normal symmetrical movements Motor Arm Left 5a: [0] = No drift Motor Arm Right 5b: [0] = No drift Motor Leg Left 6a: [0] = No drift Motor Leg Right 6b: [0] = No drift Limb Ataxia 7: [0] = Absent Sensory 8: [0] = Normal Best Language 9: [0] = No aphasia Dysarthria 10: [0] = Normal Extinction and Inattention 11: [0] = No abnormality NIHSS Total: 0 # Exam SBP: 145 DBP: 66 # PMH-FH-SH Medications: - diabetic medication - antihypertensive # Data Head CT: - no bleed - per radiologist read # Assessment Impression: - Seizure-like Activity etiology may be seizure in the setting of medication misuse vs. convulsive syncope, given it was a first time event, would hold off on treatment with an anti-epileptic # Plan Imaging: (urgency: routine): - MRI Brain with AND without contrast Diagnostic Test: - EEG Other: - If patient has any neurological deterioration please call me back immediately - seizure precautions - neurology referral as outpatient - I have discussed my recommendations with the referring provider - telemetry monitoring Disposition: continue admission # Logistics Attestation of consult completion: The patient is located at: [facility]. Facility staff participated in the visit. I performed this telemedicine visit from my offsite office utilizing interactive 2 way audio and visual telecommunication technology at the request of the onsite inpatient provider. Total time spent in telemedicine encounter: I spent 20 minutes reviewing clinical data and/or imaging, obtaining history, examining the patient, communicating with the onsite care team, and in preparation of this report. # Demographics First Name: Jailyn Last Name: Shayy Facility: [facility] Electronically signed at 12/16/2024 12:15 ([place] Time) by Susie Urias MD Neuro Consult Order placed for: Yes SUSIE URIAS MD Dec 16, 2024 12:15
[2024-12-16] MEDS ORDERED: diazepam inj 5 MG/ML inj. IV ONE (13:55)
[2024-12-16] MEDS: levetiracetam-NACL1000mg/100ml 100 ML IV ONE (14:06)
[2024-12-16] MEDS: diazepam inj 5 MG/ML inj. IV ONE ×3 (14:06→14:20)
--- NOTE | 2024-12-16 14:50 | CONSULTATION REPORT ---
Consult Providers to CC ~ History of Present Illness Reason for Admit\Complaint: AMS History of Present Illness Recently discharged from hospital and readmitted again with AMS. Questionable Seizures but also with h/o ETOH and pain killers abuse. Given Narcan in ER with improvement in her mental status RR called today due to worsening consciousness and confusion. Keppra given. Pt confuse, able to protect airway though. Allergies: Coded Allergies: crab (Verified Allergy, Mild, N/V/D, 12/15/24) latex (Verified Allergy, Mild, ITCHY AND REDNESS, 12/15/24) metformin (Verified Allergy, Mild, N/V, 12/15/24) Sulfa (Sulfonamide Antibiotics) (Verified Allergy, Unknown, 12/15/24) Home Medications Home Medications Active Zolpidem Tartrate 5 Mg Tablet 1 Tab PO HS 30 Days Clonazepam 1 Mg Tablet 1 Tab PO BID PRN MDD 2 Tablet(s) 30 Days Reported Potassium (Potassium Citrate) 99 Mg Capsule 1 Cap PO BID Ondansetron Odt (Ondansetron HCl) 8 Mg Tab.rapdis 1 Tab PO Q8H PRN Venlafaxine HCl 75 Mg Tablet 225 Mg PO DAILY Cozaar* (Losartan Potassium) 25 Mg Tablet 50 Mg PO DAILY Past Medical History Past Medical History See H&P ROS ROS Unable to obtain, confuse Exam Vitals: Vital Signs Date Time Temp Pulse Resp B/P (MAP) Pulse Ox O2 Delivery O2 Flow Rate FiO2 12/16/24 14:20 37 12/16/24 14:12 118 123/69 (87) 100 Mask 8.0 12/16/24 06:55 97.8 General: Mild distress HEENT: KEVIN, EOMI Neck: Supple, No JVD Chest: Clear Cardiovascular: S1-2 reg Abdomen: Soft, non-tender, BS (+) Extremities: No edema Central Nervous System: Confuse, moves all extremities Diagnostic Data Last Recorded Lab Results: 12/16/24 0455 12/16/24 0455 Diagnostic Data: Laboratory Tests Test 12/15/24 23:02 Prothrombin Time 10.9 SECONDS (9.0-12.0) INR International Normalized Ratio 1.1 INR Activated Partial Thromboplast Time 25 SECONDS (22-32) Coagulation Comments Additional Plan 1-AMS -DT precaution -Avoid Narcotics -EEG -Precedex drip -Supportive Tx Sergio Blair CC time 35min Sepsis Screening Reassessment Date: Dec 16, 2024 JAVON BLAIR MD Dec 16, 2024 14:50
--- NOTE | 2024-12-16 15:04 | BLUE SKY NEURO CONSULT REPORT ---
[facility] Procedure Note [facility] Procedure Note Consult [facility] Note # Demographics Type of EEG Read: - Routine EEG - video Patient Location: Inpatient First Name: Jailyn Last Name: Shayy Date of : 1960 Age: 64 Gender: Female Facility: [facility] Time of Initial Page (): 12/16/2024 10:54 First Contact with Site (): 12/16/2024 10:56 # EEG Interpretation Start Time of EEG Read (): 12/16/2024 11:09 Stop Time of EEG Read (): 12/16/2024 11:36 Duration: 0h 27m Technical Details: - The EEG electrodes were placed using the standard International 10-20 system of electrode placement. Video and an accessory EKG lead were used during the course of this study. - This study was recorded using the [employer] EEG software Indication: - seizure # Description Photic Stimulation: NOT Performed Hyperventilation: NOT performed Phases Captured: - awake Symmetry: symmetric Posterior Dominant Rhythm: present, attenuates on eye opening Predominant Frequencies: - posterior dominant alpha (8-12 Hz) - continuous (>90%) Amplitude: normal Reactivity: yes Variability: yes Continuity: continuous # Abnormalities Epileptiform Abnormalities: - NOT present Focal Slowing: no Seizure: - NOT present # Impression Impression: normal # Clinical Correlation Clinical Correlation: A normal EEG does not exclude nor support the diagnosis of epilepsy. # Demographics First Name: Jailyn Last Name: Shayy Facility: [facility] Neuro Consult Order placed for: Yes KIERA SUQIRES MD Dec 16, 2024 15:04
--- NOTE | 2024-12-16 15:48 | BLUE SKY NEURO CONSULT REPORT ---
[facility] Procedure Note [facility] Procedure Note Consult [facility] # Demographics Consult Type: General Neurology Patient Location: Inpatient First Name: zakiya Last Name: shant Date of : 1960 Age: 64 Gender: Female Facility: [facility] Time of Initial Page (): 12/16/2024 13:54 First Contact with Site (): 12/16/2024 13:54 Phone Only Consult: 64 y/o F with a PMHx of HTN, depression, DM evaluated earlier after she was admitted for a seizure in the setting of UTI, had another generalized tonic clonic seizure while admitted. Phone Agreement: - phone consult deemed mutually sufficient for patient care # Assessment Impression: - Seizure # Plan Imaging: (urgency: routine): - MRI Brain with AND without contrast Diagnostic Test: - EEG Medication: Keppra 60mg/kg loading dose (max 4500mg) x 1 dose now followed by 500mg BID Ativan prn seizures Other: - If patient has any neurological deterioration please call me back immediately - seizure precautions - telemetry monitoring - I have discussed my recommendations with the referring provider Disposition: continue admission # Logistics Attestation of consult completion: The patient is located at: [facility]. I performed this phone consultation from my offsite office Total time spent in telemedicine encounter: I spent 10 minutes in reviewing clinical data and/or imaging, obtaining history, communicating with the onsite care team, and in preparation of this report. # Demographics First Name: zakiya Last Name: shant Facility: [facility] Electronically signed at 12/16/2024 15:48 () by Susie Urias MD Neuro Consult Order placed for: Yes SUSIE URIAS MD Dec 16, 2024 15:48
[2024-12-16] MEDS: dexmedetomidin/NS 400mcg/100ml 100 ML IV SCH (16:55)
[2024-12-16] MEDS ORDERED: CLON1TAB12 PO (17:20)
--- NOTE | 2024-12-16 17:38 | CARDIOLOGY REPORT ---
APPROVED REPORT EXAM: Comprehensive 2D, Doppler, and color-flow Echocardiogram with saline. Patient Location: [facility] Blood Pressure: 145/66 mmHg Heart Rate: 98 bpm Indications Syncope Congestive Heart Failure Hypertension Diabetes PATENT LAWYER: Taylor Gautam MD Previous ECHO: 07/15/24, [facility], EF: 60 2D Dimensions LA Diam 3.1 cm IVSd 1.0 (0.7-1.1cm) LVDd 3.3 cm PWd 1.0 (0.7-1.1cm) IVSs 1.3 (0.8-1.2cm) LVDs 2.0 (2.5-4.0cm) PWs 1.2 (0.8-1.2cm) LVOT Diameter 2.00 (1.8-2.4cm) LVEF(%) 70.4 (>50%) Ao Asc Diam. 2.54 cm IVC 17.05 mm FS (%) 38.8 % SV 30.7 ml CO 3.1 L/min M-Mode Dimensions Left Atrium(MM) 3.11 (2.5-4.0cm) Aortic Root 2.89 (2.2-3.7cm) Aortic Cusp Exc 1.35 (1.5-2.0cm) Aortic Valve AoV Peak Maxx. 165.8 cm/s AoV VTI 27.6 cm AO Peak GR. 11.0 mmHg AO Mean GR. 6 mmHg LVOT VTI 27.50 cm LVOT Peak Maxx. 127.6 cm/s MARIO(VTI)/BSA 3.12 cm2/m2 MARIO (VTI) 3.12 cm2 AV DI 1.00 % Mitral Valve MV E Velocity 90.4 cm/s MV Peak Gr. 7 mmHg MV DECEL TIME 168 ms MV A Velocity 143.1 cm/s MV PHT 60 ms E/A Ratio 0.6 MVA (PHT) 3.67 cm2 MV VMax 130.5 cm/s TDI Lateral E' P. V 11.19 cm/s E/Lateral E' 8.1 Tricuspid Valve TR P. Velocity 155 cm/s RAP ESTIMATE 10 mmHg TR Peak Gr. 10 mmHg RVSP 20 mmHg LEFT VENTRICLE Normal LV size and wall thickness. Overall systolic function is normal. LVEF is 65-70%. RIGHT VENTRICLE RV is normal size and function. ATRIA The left atrium size is normal. Saline study was performed with 4 IV injections of 10 ccs of agitated normal saline at rest, with cough, and with valsalva. Negative saline study for right to left flow. AORTIC VALVE Trileaflet AV appears mildly sclerotic without stenosis. No insufficiency. MITRAL VALVE Mild mitral annular calcification without stenosis. Trace regurgitation. TRICUSPID VALVE Tricuspid valve is grossly normal in structure with trace regurgitation. PULMONIC VALVE Pulmonic valve is grossly normal in structure with physiologic insufficiency. GREAT VESSELS The aortic root is normal in size. The ascending aorta is normal in size. IVC is normal in size. PERICARDIUM Normal pericardium. No effusion. Anterior epicardial fat pad is present. Other Information Study Quality: Adequate Conclusion Normal LV size and wall thickness. Overall systolic function is normal. LVEF is 65-70%. RV is normal size and function. The left atrium size is normal. Saline study was performed with 4 IV injections of 10 ccs of agitated normal saline at rest, with cough, and with valsalva. Negative saline study for right to left flow. Trileaflet AV appears mildly sclerotic without stenosis. No insufficiency. Mild mitral annular calcification without stenosis. Trace regurgitation. Tricuspid valve is grossly normal in structure with trace regurgitation. Normal pericardium. No effusion. Anterior epicardial fat pad is present.
[2024-12-16] MEDS ORDERED: levetiracetam-NACL1000mg/100ml 100 ML IV ONE (20:00)
[2024-12-16] MEDS: Levetiracetam-NACL 500mg/100ml 100 ML IV SCH (20:25)
--- NOTE | 2024-12-16 21:36 | RADIOLOGY REPORT ---
EXAM: US ULTRASOUND OF ABDOMEN HISTORY: elevated liver enzymes COMPARISON: CT CT ABDOMEN PELVIS on DOS: 07/15/24 TECHNIQUE: Multiple longitudinal and transverse sonographic images of the abdomen were obtained. Doppler was applied as indicated. FINDINGS: [PANCREAS]: The visualized portions of the pancreas are unremarkable. [AORTA]: Normal [LIVER]: 15.9 cm. increased echogenicity. There is no focal hepatic mass lesion detected. [GALLBLADDER]: Gallbladder wall measures 0.3 cm. There is no gallbladder sludge or shadowing gallstone. There is no sonographic Dewey sign. [BILIARY TREE]: Common bile duct measures 0.4 cm in diameter. no intrahepatic biliary ductal dilatation. [ASCITES]: No free fluid is demonstrated. [VESSELS]: The main portal vein is patent on color Doppler evaluation. The inferior vena cava is patent on color Doppler evaluation. [RIGHT KIDNEY]: 9.9 cm. normal cortical echogenicity and normal contour. No hydronephrosis. Increased echogenicity. IMPRESSION: 1. Heterogeneously echogenic liver, which is a nonspecific finding and may represent hepatic steatosis and/or other underlying hepatocellular pathology.
[2024-12-17] VITALS (23 sets, daily range): BP systolic 121–160; BP diastolic 48–68; PULSE 57–99; RESP 16–30; TEMP 97.6–98.7; O2SAT 94–98
[2024-12-17 07:01] LABS: MEAN PLATELET VOLUME 7.5 FL (7.4-10.4); RED CELL DISTRIBUTION WIDTH 15.1 % (11.5-14.5)
[2024-12-17 07:17] LABS: CREATININE 0.93 MG/DL (0.40-0.90); TOTAL CARBON DIOXIDE 16.0 MMOL/L (24-32); eCRCL 47 ML/MIN; eGFR 60 ML/MIN
--- NOTE | 2024-12-17 08:02 | PROGRESS NOTE ---
Progress Note Dictate Providers to CC ~ Progress Note: No new acute issues overnight Central Line/PICC still needed: N\A Guo Indications Met/Not Met: F/C Indications Met Antibiotic Ordered?: Yes Subjective Subjective Comfortable Objective Vitals Vital Signs Date Time Temp Pulse Resp B/P (MAP) Pulse Ox O2 Delivery O2 Flow Rate FiO2 12/17/24 07:44 67 12/17/24 07:35 25 95 Room Air 12/17/24 07:31 0 21 12/17/24 07:00 98.2 153/62 (92) Lab Results: 12/17/24 0617 12/17/24 0617 Objective Heart: S1-2 reg Lungs: Clear Abd: Soft, BS (+) Ext: No edema Neuro: Awake, alert Coagulation Studies Laboratory Tests Test 12/15/24 23:02 Prothrombin Time 10.9 SECONDS (9.0-12.0) INR International Normalized Ratio 1.1 INR Activated Partial Thromboplast Time 25 SECONDS (22-32) Coagulation Comments Problem\Assessment\Plan Additional Plan 1-AMS -DT precaution -Avoid Narcotics -Cancel EEG -D/C Precedex drip -Start Seroquel 2-UTI -F/U cultures -Complete 3-5d of abx Sergio Blair Sepsis Screening Reassessment Date: Dec 17, 2024 JAVON BLAIR MD Dec 17, 2024 08:02
[2024-12-17] MEDS: loperamide 2mg capsule PO PRN ×2 (11:38→11:39)
[2024-12-17] MEDS ORDERED: albuterol 2.5 MG/3 ML nebule NEB PRN (11:40)
[2024-12-17] MEDS ORDERED: ipratropium/albuterol 3ml nebule NEB PRN (11:40)
--- NOTE | 2024-12-17 15:57 | PROGRESS NOTE ---
Daily Progress Note Providers to CC ~ Antibiotic Timeout Antibiotic Ordered?: Yes Subjective Patient has no new complaints. Objective Vital Signs Date Time Temp Pulse Resp B/P (MAP) Pulse Ox O2 Delivery O2 Flow Rate FiO2 12/17/24 15:30 76 16 Room Air* 0 21 12/17/24 15:00 150/65 (93) 96 12/17/24 12:00 98.1 Result Diagram: 12/17/24 0617 12/17/24 0617 Awake, opens eyes to her name HEENT normocephalic atraumatic extraocular movements are intact Neck supple, no JVD Chest: Clear to auscultation, no wheezes crackles rhonchi Heart: Regular rate rhythm, no murmur or gallop rub Abdomen is soft nontender, no organomegaly Extremities no cyanosis clubbing or edema Neuro exam grossly nonfocal. Moves all four extremities. Coagulation Studies Laboratory Tests Test 12/15/24 23:02 Prothrombin Time 10.9 SECONDS (9.0-12.0) INR International Normalized Ratio 1.1 INR Activated Partial Thromboplast Time 25 SECONDS (22-32) Coagulation Comments Other Results Medications reviewed Problem\Assessment\Plan 64 years old female brought to the emergency room for altered mental status. # Metabolic encephalopathy: Improving ,likely due to postictal state. # Seizure : Continue Keppra # UTI: Continue IV antibiotics # SIRS: Continue supportive care #diabetes mellitus type 2: Carb controlled diet. Hyper/hypoglycemia protocol #hypertension: Continue losartan # chronic pain/sciatica: Patient has a DJD of the C-spine. Spinal CT showed moderate to severe cervical degenerative disease and moderate to severe degenerative foraminal stenosis. Address pain control as necessary #acute kidney injury on chronic kidney disease: Likely due to poor p.o. intake/vasomotor nephropathy. Continue monitor. # abnormal LFTs: Continue monitor # hypomagnesemia: Replace per protocol #HFpEF: LASIX P.R.N. # CODE STATUS: Full code. Date of Service: Dec 17, 2024 Billing Provider: FCO QUIROGA MD Common Visit Codes: [id number] INP/OBS CARE(HIGH) FCO QUIROGA MD Dec 17, 2024 15:57
[2024-12-18 05:00] VITALS: BP 153/94; PULSE 95; RESP 16; TEMP 98.4; O2SAT 98
[2024-12-18] MEDS: HYDROcodone/acetaminophen 5mg/325mg tablet PO ONE (05:50)
[2024-12-18 07:03] LABS: MEAN PLATELET VOLUME 6.7 FL (7.4-10.4); RED CELL DISTRIBUTION WIDTH 14.8 % (11.5-14.5)
[2024-12-18 07:30] LABS: CREATININE 0.94 MG/DL (0.40-0.90); TOTAL CARBON DIOXIDE 18.2 MMOL/L (24-32); eCRCL 47 ML/MIN; eGFR 60 ML/MIN
[2024-12-18] MEDS: potassium Cl 20 mEq SR tablet PO PRN (07:40)
[2024-12-18 09:03] VITALS: RESP 18; O2SAT 96
[2024-12-18 10:00] VITALS: BP 149/71; PULSE 77; RESP 18; TEMP 98.8; O2SAT 96
[2024-12-18] MEDS: HYDROcodone/acetaminophen 5mg/325mg tablet PO PRN (12:53)
[2024-12-18] MEDS: diazepam inj 5 MG/ML inj. IV PRN (14:48)
--- NOTE | 2024-12-18 16:03 | PROGRESS NOTE ---
Daily Progress Note Providers to CC ~ feels better today seizure was control blood pressure well controlled Central Line/PICC still needed: No Guo-Non Protocol Guo Indications Met/Not Met: F/C Indications Not Met Antibiotic Timeout Antibiotic Ordered?: No MRSA Education MRSA Education Provided to pt: No Subjective As above Objective Vital Signs Date Time Temp Pulse Resp B/P (MAP) Pulse Ox O2 Delivery O2 Flow Rate FiO2 12/18/24 14:48 16 12/18/24 10:00 98.8 77 149/71 (97) 96 Room Air 12/17/24 15:30 0 21 Vital signs, stable ,afebrile. Pulse Oximetry reflects adequate oxygenation. General: well developed, well nourished. Awake , alert, and oriented x4, resting comfortably in the bed, in no acute distress . Skin: Warm, dry, no pallor, no rash or petechiae. HEENT: Atraumatic, normocephalic, EOMI, anicteric sclera B; pink conjunctiva; PERRLA, normal oropharynx, moist oral and nasal mucosa. Tympanic membrane , nose , throat clear. Neck: Trachea midline. Supple, full range of motion, no JVD, bruit , hepatojugular reflex , lymphadenopathy or masses, or other lesions Cardiac: Regular rhythm, regular rate no murmurs, rubs, or gallops. Normal S1 and S2, no S3 noticed. PMI is normal. Respiratory: Equal breath sounds bilaterally, no tachypnea; lungs clear to auscultation bilaterally, no wheezing ,rub or rales, or crackles. Chest wall is symmetric and without deformity. No signs of trauma. Chest wall is nontender. No signs of respiratory distress. Resonance is normal upon percussion bilaterally. Gastrointestinal: Abdomen symmetric, non-distended, soft, non-tender, normal bowel sounds x4 quadrant, normoactive, no hepatosplenomegaly , no masses , no bruit, no flank pain bilaterally. No voluntary guarding, rebound, or rigidity. No tenderness to percussion. No pulsatile masses. Equal femoral pulses. No Dewey's sign or McBurney point tenderness. Back; no CVA tenderness bilaterally, no deformities. Neck and back are without deformity as well. No tenderness noted on palpation of the spinous processes. Spinous processes are midline. Cervical, thoracic, and lumbar paraspinal muscles are not tender and are without spasm. Musculoskeletal: Extremities, normal range of motion, non-tender, muscle strength 5/5 x 4. Negative Homans signs bilaterally on lower extremity. Distal pulses full symmetrical, no clubbing, cyanosis , edema. Neurological: Speech is clear, alert, and oriented x 4. No motor or sensory deficit, deep tendon reflexes normal, cerebellar intact. Cranial nerves II-XII intact. Psych: Alert and or appropriate, normal affect. Vascular: Good distal pulses, which are equal x4; capillary refill less than 2 seconds. Lymphatic, no lymphadenopathy. Result Diagram: 12/18/2439 12/18/2439 Coagulation Studies Laboratory Tests Test 12/15/24 23:02 Prothrombin Time 10.9 SECONDS (9.0-12.0) INR International Normalized Ratio 1.1 INR Activated Partial Thromboplast Time 25 SECONDS (22-32) Coagulation Comments Problem\Assessment\Plan Assessment/plan 64 years old female brought to the emergency room for altered mental status. # Metabolic encephalopathy: Improving ,likely due to postictal state. # Seizure : Continue Keppra # UTI: Continue IV antibiotics # SIRS: Continue supportive care #diabetes mellitus type 2: Carb controlled diet. Hyper/hypoglycemia protocol #hypertension: Continue losartan # chronic pain/sciatica: Patient has a DJD of the C-spine. Spinal CT showed moderate to severe cervical degenerative disease and moderate to severe degenerative foraminal stenosis. Address pain control as necessary #acute kidney injury on chronic kidney disease: Likely due to poor p.o. intake/vasomotor nephropathy. Continue monitor. # abnormal LFTs: Continue monitor # hypomagnesemia: Replace per protocol #HFpEF: LASIX P.R.N. # CODE STATUS: Full code. Disposition, will need rehab placement Sepsis Screening Reassessment Date: Dec 18, 2024 Date of Service: Dec 18, 2024 Billing Provider: LAUREN CALLEJAS MD Common Visit Codes: [id number] INP/OBS CARE(MOD) LAUREN CALLEJAS MD Dec 18, 2024 16:03
[2024-12-18 18:00] VITALS: BP 165/79; PULSE 89; RESP 16; TEMP 99.3; O2SAT 99
[2024-12-18] MEDS ORDERED: hydrALAZINE 20mg/ml inj. IV PRN (18:25)
[2024-12-18 20:00] VITALS: RESP 16; O2SAT 99
[2024-12-18 22:00] VITALS: BP 150/77; PULSE 80; RESP 18; TEMP 98; O2SAT 99
[2024-12-19] VITALS (7 sets, daily range): BP systolic 130–150; BP diastolic 47–66; PULSE 74–94; RESP 16–20; TEMP 97.8–98.4; O2SAT 97–100
[2024-12-19 06:36] LABS: MEAN PLATELET VOLUME 7.1 FL (7.4-10.4); RED CELL DISTRIBUTION WIDTH 14.8 % (11.5-14.5)
[2024-12-19 06:58] LABS: CREATININE 0.72 MG/DL (0.40-0.90); TOTAL CARBON DIOXIDE 20.7 MMOL/L (24-32); eCRCL 61 ML/MIN; eGFR 81 ML/MIN
[2024-12-19] MEDS ORDERED: potassium Cl 20 mEq SR tablet PO PRN (07:30)
[2024-12-19] MEDS ORDERED: magnesium sulf-water 2g/50mL 50 ML IV PRN (07:30)
[2024-12-19] MEDS ORDERED: magnesium sulf-water 4G/100mL 100 ML IV PRN (07:30)
[2024-12-19] MEDS ORDERED: potassium Cl 40MEQ/1/2NS 520ml 520 ML IV PRN (07:30)
[2024-12-19] MEDS: phenazopyridine 100mg tablet PO SCH (07:43)
[2024-12-19] MEDS: potassium Cl 20 mEq SR tablet PO PRN (07:58)
[2024-12-19] MEDS: magnesium Cl slow-release 64mg tablet PO PRN (07:58)
--- NOTE | 2024-12-19 18:00 | PROGRESS NOTE ---
Daily Progress Note Providers to CC No new complaint today, resting comfortably in the bed ~ Central Line/PICC still needed: No Guo-Non Protocol Guo Indications Met/Not Met: F/C Indications Not Met Antibiotic Timeout Antibiotic Ordered?: Yes MRSA Education MRSA Education Provided to pt: Yes Subjective As above Objective Vital Signs Date Time Temp Pulse Resp B/P (MAP) Pulse Ox O2 Delivery O2 Flow Rate FiO2 12/19/24 14:39 18 12/19/24 10:46 98 Room Air 12/19/24 10:00 98.4 94 139/66 (90) 12/17/24 15:30 0 21 Vital signs, stable ,afebrile. Pulse Oximetry reflects adequate oxygenation. General: well developed, well nourished. Awake , alert, and oriented x4, resting comfortably in the bed, in no acute distress . Skin: Warm, dry, no pallor, no rash or petechiae. HEENT: Atraumatic, normocephalic, EOMI, anicteric sclera B; pink conjunctiva; PERRLA, normal oropharynx, moist oral and nasal mucosa. Tympanic membrane , nose , throat clear. Neck: Trachea midline. Supple, full range of motion, no JVD, bruit , hepatojugular reflex , lymphadenopathy or masses, or other lesions Cardiac: Regular rhythm, regular rate no murmurs, rubs, or gallops. Normal S1 and S2, no S3 noticed. PMI is normal. Respiratory: Equal breath sounds bilaterally, no tachypnea; lungs clear to auscultation bilaterally, no wheezing ,rub or rales, or crackles. Chest wall is symmetric and without deformity. No signs of trauma. Chest wall is nontender. No signs of respiratory distress. Resonance is normal upon percussion bilaterally. Gastrointestinal: Abdomen symmetric, non-distended, soft, non-tender, normal bowel sounds x4 quadrant, normoactive, no hepatosplenomegaly , no masses , no bruit, no flank pain bilaterally. No voluntary guarding, rebound, or rigidity. No tenderness to percussion. No pulsatile masses. Equal femoral pulses. No Dewey's sign or McBurney point tenderness. Back; no CVA tenderness bilaterally, no deformities. Neck and back are without deformity as well. No tenderness noted on palpation of the spinous processes. Spinous processes are midline. Cervical, thoracic, and lumbar paraspinal muscles are not tender and are without spasm. Musculoskeletal: Extremities, normal range of motion, non-tender, muscle strength 5/5 x 4. Negative Homans signs bilaterally on lower extremity. Distal pulses full symmetrical, no clubbing, cyanosis , edema. Neurological: Speech is clear, alert, and oriented x 4. No motor or sensory deficit, deep tendon reflexes normal, cerebellar intact. Cranial nerves II-XII intact. Psych: Alert and or appropriate, normal affect. Vascular: Good distal pulses, which are equal x4; capillary refill less than 2 seconds. Lymphatic, no lymphadenopathy. Result Diagram: 12/19/2452612/[id number]/24526 Coagulation Studies Laboratory Tests Test 12/15/24 23:02 Prothrombin Time 10.9 SECONDS (9.0-12.0) INR International Normalized Ratio 1.1 INR Activated Partial Thromboplast Time 25 SECONDS (22-32) Coagulation Comments Problem\Assessment\Plan Assessment/plan 64 years old female brought to the emergency room for altered mental status. # Metabolic encephalopathy: Improving ,likely due to postictal state. # Seizure : Continue Keppra # complicated UTI: Continue IV antibiotics # SIRS: Continue supportive care #diabetes mellitus type 2: Carb controlled diet. Hyper/hypoglycemia protocol #hypertension: Continue losartan # chronic pain/sciatica: Patient has a DJD of the C-spine. Spinal CT showed moderate to severe cervical degenerative disease and moderate to severe degenerative foraminal stenosis. Address pain control as necessary #acute kidney injury on chronic kidney disease: Likely due to poor p.o. intake/vasomotor nephropathy. Continue monitor. # abnormal LFTs: Continue monitor # hypomagnesemia: Hypokalemia Replace per protocol #HFpEF: LASIX P.R.N. # CODE STATUS: Full code. Disposition, will need rehab placement Sepsis Screening Reassessment Date: Dec 19, 2024 Date of Service: Dec 19, 2024 Billing Provider: LAUREN CALLEJAS MD Common Visit Codes: [id number] INP/OBS CARE(HIGH) LAUREN CALLEJAS MD Dec 19, 2024 18:00
[2024-12-20 06:00] VITALS: BP 157/62; PULSE 79; RESP 16; TEMP 98.5; O2SAT 99
[2024-12-20 06:02] LABS: MEAN PLATELET VOLUME 6.9 FL (7.4-10.4); RED CELL DISTRIBUTION WIDTH 15.7 % (11.5-14.5)
[2024-12-20 06:31] LABS: CREATININE 0.68 MG/DL (0.40-0.90); TOTAL CARBON DIOXIDE 22.0 MMOL/L (24-32); eCRCL 64 ML/MIN; eGFR 87 ML/MIN
[2024-12-20 10:00] VITALS: BP 124/55; PULSE 83; RESP 16; TEMP 97.8; O2SAT 97
[2024-12-20] MEDS ORDERED: FEXO-25 PO (11:38)
[2024-12-20] MEDS ORDERED: KEP500T PO (11:38)
--- NOTE | 2024-12-20 18:46 | DISCHARGE SUMMARY ---
Discharge Summary Providers to CC Feels fine today ready to be discharged home ~ Discharge Summary Assessment Hypertension Hyperlipidemia Acute metabolic encephalopathy secondary to sepsis UTI Generalized seizure Syncope Hypomagnesemia Hyponatremia Sepsis Arthritis Type 2 diabetes mellitus Depression Sciatica Admission Diagnosis: ALOC,SEIZURES Admission Diagnosis Comment: Hypertension Hyperlipidemia Acute metabolic encephalopathy secondary to sepsis UTI Generalized seizure Syncope Hypomagnesemia Hyponatremia Sepsis Arthritis Type 2 diabetes mellitus Depression Sciatica Hospital Course DATE OF ADMISSION: December 16, 2024 DATE OF DISCHARGE: December 20, 2024 Discharge Diagnosis\Comment: Hypertension Hyperlipidemia Acute metabolic encephalopathy secondary to sepsis UTI Generalized seizure Syncope Hypomagnesemia Hyponatremia Sepsis Arthritis Type 2 diabetes mellitus Depression Sciatica Operations\Procedures: None Consultants: ICU And virtual neurologist Complications: Non Condition on DC: Stable Discharge Summary: A 64-year-old female patient with a medical history of type 2 diabetes mellitus, hypertension, and depression was discharged this morning after being evaluated for metabolic encephalopathy and an altered level of consciousness. Hospital course during previous admission The patient was brought to the ED, where she presented as somnolent and poorly arousable. A stroke evaluation, including a CT scan of the head, returned negative results. The patient received two doses of Narcan, to which she responded positively, demonstrating movement in all four extremities. Toxicology results showed positive screens for benzodiazepines and cannabinoids. The patient has a history of medication misuse and visits multiple doctors. Later that evening, the patient was brought in by EMS after being called by her neighbor. The neighbor observed that the patient appeared confused and not like her usual self. The neighbor noted that the patient had fallen, lost consciousness for 1-2 minutes, and exhibited jerking movements in all four extremities. The patient also experienced some postictal confusion following the episode, but no tongue biting was observed, prompting the neighbor to call EMS. Upon arrival at the ED, the ED physician found the patient confused and altered. During my evaluation, the patient was alert and oriented to person and place (A&O x2). Her level of consciousness was improved compared to her previous admission two days ago. However, she remained mildly confused and did not have a clear memory of the events. She did mention a feeling of losing consciousness. The patient also sustained an external injury near her left forehead and left eyebrow. The patient lives alone and can ambulate independently, but she does not have any caregiver. Her neighbor, Francesca, assists her but expressed that it has become increasingly difficult to care for the patient. Admission patient was extensively evaluated treated today she is feeling fine asking to be discharged home, she will be discharged in stable condition medication reconciled, follow-up PCP in the morning, today on physical exam, Vital signs, stable ,afebrile. Pulse Oximetry reflects adequate oxygenation. B General: well developed, well nourished. Awake , alert, and oriented x4, resting comfortably in the bed, in no acute distress . Skin: Warm, dry, no pallor, no rash or petechiae. HEENT: Atraumatic, normocephalic, EOMI, anicteric sclera B; pink conjunctiva; PERRLA, normal oropharynx, moist oral and nasal mucosa. Tympanic membrane , nose , throat clear. Neck: Trachea midline. Supple, full range of motion, no JVD, bruit , hepatojugular reflex , lymphadenopathy or masses, or other lesions Cardiac: Regular rhythm, regular rate no murmurs, rubs, or gallops. Normal S1 and S2, no S3 noticed. PMI is normal. Respiratory: Equal breath sounds bilaterally, no tachypnea; lungs clear to auscultation bilaterally, no wheezing ,rub or rales, or crackles. Chest wall is symmetric and without deformity. No signs of trauma. Chest wall is nontender. No signs of respiratory distress. Resonance is normal upon percussion bilaterally. Gastrointestinal: Abdomen symmetric, non-distended, soft, non-tender, normal bowel sounds x4 quadrant, normoactive, no hepatosplenomegaly , no masses , no bruit, no flank pain bilaterally. No voluntary guarding, rebound, or rigidity. No tenderness to percussion. No pulsatile masses. Equal femoral pulses. No Dewey's sign or McBurney point tenderness. Back; no CVA tenderness bilaterally, no deformities. Neck and back are without deformity as well. No tenderness noted on palpation of the spinous processes. Spinous processes are midline. Cervical, thoracic, and lumbar paraspinal muscles are not tender and are without spasm. Musculoskeletal: Extremities, normal range of motion, non-tender, muscle strength 5/5 x 4. Negative Homans signs bilaterally on lower extremity. Distal pulses full symmetrical, no clubbing, cyanosis , edema. Neurological: Speech is clear, alert, and oriented x 4. No motor or sensory deficit, deep tendon reflexes normal, cerebellar intact. Cranial nerves II-XII intact. Psych: Alert and or appropriate, normal affect. Vascular: Good distal pulses, which are equal x4; capillary refill less than 2 seconds. Lymphatic, no lymphadenopathy. *Problems/Diagnosis: (1) Metabolic encephalopathy Status: Acute Total Time Spent on D/C: > 30 Minutes Date of Service: Dec 20, 2024 Billing Provider: LAUREN CALLEJAS MD Common Visit Codes: 05827-XWJ/[id number] DISCH DAY >30min LAUREN CALLEJAS MD Dec 20, 2024 18:46
== END 2024-12-20 14:20 | disposition home health service (06) | DRG 871 ==
LOC: ER 17:58 → ED HOLD 22:25 → ORTHO 4S 12-16 01:13 → CICU 2S 12-16 14:40 → SUR 3N 12-17 16:10
PROVIDERS: ADMIT Internal Medicine; ATTEND Internal Medicine
PROC: 4A10X4Z Monitoring of Central Nervous Electrical Activity, External Approach (ICD-10-PCS; principal; 2024-12-16)
DX: A41.9 Sepsis, unspecified organism (principal); G93.41 Metabolic encephalopathy; N17.0 Acute kidney failure with tubular necrosis; N39.0 Urinary tract infection, site not specified; I50.30 Unspecified diastolic (congestive) heart failure; I13.0 Hypertensive heart and chronic kidney disease with heart failure and stage 1 through stage 4 chronic kidney disease, or unspecified chronic kidney disease; R56.9 Unspecified convulsions; E11.22 Type 2 diabetes mellitus with diabetic chronic kidney disease; F32.A Depression, unspecified; N18.31 Chronic kidney disease, stage 3a; E87.1 Hypo-osmolality and hyponatremia; E83.42 Hypomagnesemia; M48.02 Spinal stenosis, cervical region; M47.812 Spondylosis without myelopathy or radiculopathy, cervical region; E78.00 Pure hypercholesterolemia, unspecified; E87.6 Hypokalemia; F41.9 Anxiety disorder, unspecified
CPT/HCPCS: 36415; 70450; 71045; 72125; 76700; 80053; 80305; 80320; 81001; 82140; 82248; 82550; 82607; 82948; 82977; 83605; 83735; 83880; 84100; 84132; 84484; 85025; 85610; 85651; 85730; 86140; 87040; 87077; 87081; 87088; 87186; 92508; 92616; 93005; 93306; 94760; 95816; 96372; 97161; 97530; 99285; A4620; A6213; A6250; A6449; C1758; G0378; J0696; J1630; J1815; J1953; J2060; J2312; J3360; J3490; J7030; J7050; Q0163